=== PATIENT | female | born 1960 | race Caucasian/White ===

== ENCOUNTER 2017-10-22 13:46 | Emergency (ER) | payer BC ==
[~2017-10-22] VITALS: Ht 160 cm; Wt 49.0 kg
--- NOTE | 2017-10-22 14:05 | NUR ---
PATIENT NOTED FOREHEAD LAC S/P TRP AND FALL AND HIT HEAD. NO KO,. PATIENT IS AAO4. VSS. MINIMAL BLEEDING NOTED. EKMEKJIRODRIGUE AT BEDSIDE
[2017-10-22] MEDS ORDERED: IBUPROFEN 600 MG TABLET PO ONE ×2 (14:30→14:43)
[2017-10-22] MEDS ORDERED: TDAP [DIPH/PERTUSSIS/TET] 0.5 ML VIAL IM ONE ×2 (14:30→14:43)
[2017-10-22] MEDS ORDERED: LIDOCAINE HCL/PF 1% 30 ML VIAL TP ONE (14:30)
[2017-10-22] MEDS ORDERED: LIDOCAINE 1% INJ 50 ML MDV IJ ONE (14:36)
[2017-10-22 15:39] VITALS: BP 109/67
== END 2017-10-22 15:39 | disposition home or self-care (01) ==
LOC: ER 13:49
DX: S01.01XA Laceration without foreign body of scalp, initial encounter (principal); F32.9 Major depressive disorder, single episode, unspecified; Z23 Encounter for immunization; Z88.2 Allergy status to sulfonamides; W01.0XXA Fall on same level from slipping, tripping and stumbling without subsequent striking against object, initial encounter; Y93.01 Activity, walking, marching and hiking; Y92.89 Other specified places as the place of occurrence of the external cause; Y99.8 Other external cause status
CPT/HCPCS: 12002; 90471; 90715; 99283; A4606; A6402 ×2; A6403 ×2; J3490 ×2; Z7610